=== PATIENT | male | born 1955 | race Caucasian/White ===

== ENCOUNTER 2016-10-26 15:28 | Emergency (ER) | payer OTHER ==
[~2016-10-26] VITALS: Ht 177.8 cm; Wt 120.9 kg
[2016-10-26 15:36] VITALS: PULSE 95; RESP 18; TEMP 99.5; O2SAT 93
[2016-10-26] MEDS ORDERED: TRIAMCINOLONE ACET TOPICAL ONE (16:00)
[2016-10-26] MEDS ORDERED: predniSONE 20 MG TAB PO ONE (16:00)
[2016-10-26] MEDS ORDERED: SULFAMETHOXAZOLE-TRIMETHOPRIM DS 800-160 MG TAB PO ONE (16:00)
[2016-10-26] MEDS ORDERED: METH750T PO (16:05)
[2016-10-26] MEDS ORDERED: GABA300C5 PO (16:05)
[2016-10-26] MEDS ORDERED: TRAM50TA PO (16:05)
[2016-10-26] MEDS ORDERED: HYDR25TA5 PO (16:05)
[2016-10-26] MEDS ORDERED: LISI10TA3 PO (16:05)
[2016-10-26] MEDS ORDERED: PRAV10TA PO (16:05)
[2016-10-26] MEDS ORDERED: HYDR10TA23 PO (16:05)
--- NOTE | 2016-10-26 16:11 | PD ---
HPI Chief Complaint: Skin Problem Time Seen by Provider: 16:04 Travel History International Travel<30 days: No Contact w/Intl Traveler<30days: No Traveled to known affect area: No History of Present Illness HPI 61-year-old male presents to the emergency Department with blistering to the left sole of the foot and ankle secondary to wearing a neoprene ankle brace when he was in [facility] during the [place] brace last past weekend. Patient states it is mildly painful with ambulation, as well as itchy. Patient has had similar reactions neoprene in the past, but did not think this ankle brace that he go to [place] would cause a reaction. He denies fever, chills, or diabetes. Patient has not tried doing anything for it. He had similar reaction on his hands from diving gloves in the past. Patient has no known drug allergies. PFSH Past Medical History Cancer: Yes (skin) Cardiovascular Problems: Yes (HTN) High Cholesterol: Yes COPD: Yes Hypertension: Yes Tetanus Vaccination: < 5 Years Influenza Vaccination: Yes Social History Alcohol Use: No Tobacco Use: No Substance Use: No Allergies-Medications (Allergen,Severity, Reaction): Coded Allergies: No Known Allergies (Unverified , 10/26/16) Reported Meds & Prescriptions Reported Meds & Active Scripts Active Prednisone 20 Mg Tab 20 Mg PO BID Triamcinolone Topical (Triamcinolone Acetonide) 0.1 % Oint 1 Applic TOPICAL BID Bactrim DS (Sulfamethoxazole-Trimethoprim) 800-160 Mg Tab 1 Tab PO BID Reported Pravastatin 10 Mg Tab Unknown Dose PO DAILY Tramadol (Tramadol HCl) 50 Mg Tab 100 Mg PO Q6H PRN Gabapentin 300 Mg Cap 900 Mg PO TID Methocarbamol 750 Mg Tab 750 Mg PO BID Hydrochlorothiazide 25 Mg Tab Unknown Dose PO DAILY Lisinopril 10 Mg Tab 10 Mg PO DAILY Hydralazine (Hydralazine HCl) 10 Mg Tab Unknown Dose PO BID Take with a meal Review of Systems Except as stated in HPI: all other systems reviewed are Neg General / Constitutional: No: Fever Eyes: No: Visual changes HENT: No: Headaches Cardiovascular: No: Chest Pain or Discomfort Respiratory: No: Shortness of Breath Gastrointestinal: No: Abdominal Pain Genitourinary: No: Dysuria Musculoskeletal: No: Pain Skin: Positive Rash, Positive Itching (see history of present illness) Neurologic: No: Weakness Psychiatric: No: Depression Endocrine: No: Polydipsia Hematologic/Lymphatic: No: Easy Bruising Physical Exam Narrative GENERAL: Patient appears in no acute distress. SKIN: Warm and dry. Normal color. Normal turgor. Skin of the left foot shows clear fluid-filled vesicles on the sole and sides of the foot where the patient had a brace previously consistent with what appears to be dyshidrotic eczema versus allergic reaction with secondary cellulitic findings. There is small amount of pus pockets noted. No significant erythema, edema, or lymphangitis. Patient is clear serous drainage. HEAD: Atraumatic. Normocephalic. EYES: Pupils equal and round. No scleral icterus. No injection or drainage. ENT: No nasal bleeding or discharge. Mucous membranes pink and moist. Pharynx is normal. NECK: Trachea midline. Supple and nontender. CARDIOVASCULAR: Regular rate and rhythm. RESPIRATORY: No accessory muscle use. Clear to auscultation. Breath sounds equal bilaterally. MUSCULOSKELETAL: Extremities without clubbing, cyanosis, or edema. No obvious deformities. NEUROLOGICAL: Awake and alert. No obvious cranial nerve deficits. Motor grossly within normal limits. Five out of 5 muscle strength in the arms and legs. Normal speech. PSYCHIATRIC: Appropriate mood and affect; insight and judgment normal. Data Data Last Documented VS Vital Signs Date Time Temp Pulse Resp B/P Pulse Ox O2 Delivery O2 Flow Rate FiO2 10/26/16 15:36 99.5 95 18 93 Orders Triamcinolone Topical Clio (Kenalog Top (10/26/16 16:00) Wound Care (10/26/16 15:50) Prednisone (Deltasone) (10/26/16 16:00) Sulfamet-Trimeth Ds 800-160 Mg (Bactrim (10/26/16 16:00) MDM Medical Decision Making Medical Screen Exam Complete: Yes Emergency Medical Condition: Yes Differential Diagnosis Dyshidrotic eczema. Allergic reaction. Cellulitis. Narrative Course Patient is medically stable at time of exam. I feel the patient is suffering from a severe case of dyshidrotic eczema with possible secondary cellulitis to the left foot. This seems to be related to an allergic reaction to a neoprene ankle brace. The foot was cleansed with Betadine and saline, and a bulky dressing was placed after steroid spray was applied. Patient is given prednisone 60 mg by mouth. Patient is given Bactrim DS by mouth once here. Patient is discharged home on Bactrim DS twice a day 7 days. Patient is discharged home on prednisone 20 mg twice a day 5 days. Patient is given a prescription for triamcinolone ointment to be applied to the area twice daily with dry dressing above. Patient is to stay off the foot as much as possible and elevated. [facility] Patient should return to the emergency department if symptoms worsen as needed. Diagnosis Primary Impression: Dyshidrotic eczema Additional Impression: Cellulitis of left foot excluding toes Referrals: [facility] [place] Patient Instructions: Cellulitis (ED), Dyshidrotic Eczema (ED), General Instructions Additional Instructions: I feel the patient is suffering from a severe case of dyshidrotic eczema with possible secondary cellulitis to the left foot. This seems to be related to an allergic reaction to a neoprene ankle brace. The foot was cleansed with Betadine and saline, and a bulky dressing was placed after steroid spray was applied. Patient is given prednisone 60 mg by mouth. Patient is given Bactrim DS by mouth once here. Patient is discharged home on Bactrim DS twice a day 7 days. Patient is discharged home on prednisone 20 mg twice a day 5 days. Patient is given a prescription for triamcinolone ointment to be applied to the area twice daily with dry dressing above. Patient is to stay off the foot as much as possible and elevated. [facility] to ensure [facility]. Patient should return to the emergency department if symptoms worsen as needed. Med/Other Pt SpecificInfo: Prescription(s) given Scripts Prednisone 20 Mg Tab20 Mg PO BID #10 TAB Prov:Sid Ingram MD 10/26/16 Triamcinolone Topical 0.1 % Oint1 Applic TOPICAL BID #15 GM Ref 1 Prov:Sid Ingram MD 10/26/16 Sulfamethoxazole-Trimethoprim (Bactrim DS)800-160 Mg Tab1 Tab PO BID #14 TAB Prov:Sid Ingram MD 10/26/16 Disposition: 01 DISCHARGE HOME Condition: Stable Aldo Donald Oct 26, 2016 16:11 Aldo Donald Oct 26, 2016 16:11
[2016-10-26] MEDS ORDERED: PRED20 PO (16:13)
[2016-10-26] MEDS ORDERED: TRIAM.1%T TOPICAL (16:13)
[2016-10-26] MEDS ORDERED: BACT800T5 PO (16:13)
== END 2016-10-26 16:34 | disposition home or self-care (01) ==
LOC: EDSEX → PHEFT 15:28
DX: L03.116 Cellulitis of left lower limb (principal); L30.1 Dyshidrosis [pompholyx]; I10 Essential (primary) hypertension; E78.00 Pure hypercholesterolemia, unspecified
CPT/HCPCS: 99283; J7512